=== PATIENT | male | born 1960 ===

== ENCOUNTER 2023-08-27 20:46 | Emergency (ER) | payer OTHER ==
[~2023-08-27] VITALS: Ht 177.8 cm; Wt 87.4 kg
[2023-08-27 21:00] VITALS: BP 117/74; PULSE 103; RESP 16; O2SAT 95
[2023-08-27 21:39] LABS: Urine WBC None Seen /hpf (0 - 3)
[2023-08-27] MEDS ORDERED: ELECTROLYTE 1000ML ORAL SOLN PO ONE (21:45)
[2023-08-27] MEDS ORDERED: diphenhdrAMINE HCL 25 MG CAP PO ONE (21:45)
[2023-08-27] MEDS ORDERED: TERBUTALINE SULFATE 1 MG/ML 1ML VIAL SC ONE (21:45)
[2023-08-27] MEDS ORDERED: PSEUDOEPHEDRINE HCL 30 MG TAB PO ONE (21:45)
[2023-08-27 21:53] LABS: Urine Bacteria FEW /hpf (None Seen); Urine Blood Negative /uL (Negative); Urine Clarity Clear (Clear); Urine Color Colorless (Yellow); Urine Protein, UAD Negative (Negative); Urine Specific Gravity 1.013 (1.001-1.035); Urine Urobilinogen Normal (Negative)
== END 2023-08-27 22:18 | disposition left against medical advice (07) ==
LOC: ER 20:46
DX: N48.30 Priapism, unspecified (principal); I10 Essential (primary) hypertension; E11.9 Type 2 diabetes mellitus without complications; E78.5 Hyperlipidemia, unspecified
CPT/HCPCS: 81001